=== PATIENT | male | born 1955 ===

== ENCOUNTER → 2017-10-30 | Outpatient (CLI) | payer BC ==
--- NOTE | 2017-10-30 17:40 | CONS ---
CONSULTATION DATE OF SERVICE: 10/30/2017 62-year-old gentleman who has been evaluated in [facility] for obstructive sleep apnea-hypopnea syndrome. HISTORY OF ILLNESS OF PRESENT ILLNESS SLEEP WAKE EVALUATION: Patient had been diagnosed with obstructive sleep apnea about 10 years ago. Since that time, he is on treatment with CPAP and he is using CPAP equipment every night for the whole night, but still even on CPAP he wakes up from sleep during the night. SLEEP SCHEDULE: His sleep schedule on the weekdays from 2:00 am until 9:00 to 10:00 a.m. and on weekends from around 1 to 2 am until 8 to 9:00 am: FALLING ASLEEP: No problems with falling asleep. No TV in bedroom. DURING SLEEP: He sleeps in different position and sometimes his mask is out and he may snore during the sleep. Also according to his , he may have some kind of babbling sounds during the sleep. His weight fluctuating in the range between 235-255 for the last several years after he had a previous sleep study. [place] Sleepiness Scale today is 5. PAST MEDICAL HISTORY: Positive for coronary artery disease, status post stent insertions several times, hypertension, hyperlipidemia, diabetes mellitus. PAST SURGICAL HISTORY: Stent insertions to coronary arteries and left knee replacement. MEDICATIONS: Fenofibrate, lisinopril, carvedilol, atorvastatin, metformin, aspirin, Levemir. SOCIAL HISTORY: Negative for smoking. Alcohol consumption occasional. FAMILY HISTORY: Hypertension, heart problems, bronchitis, sleep apnea, snoring, diabetes. REVIEW OF SYMPTOMS: Awakenings from sleep while on treatment with CPAP. Sometimes swelling of the legs. PHYSICAL EXAM: gentleman without distress, BP 154/84, HR 67, R 16, height 5 feet 10 inches, weight 245, BMI 34.1. Temperature 98.2, oxygen saturation on room air 97%. Oropharynx extremely low position of soft palate, slight restriction of nasal breathing. Abdomen slightly obese. Extremities 1+ ankle edema. Neck 16.5 inches in circumference. Neck Supple, no JVD. Thyroid is not palpable. LUNGS Clear to percussion and to auscultation. Good air exchange. No wheezing or rhonchi. HEART S1, S2 regular. No murmurs, gallops, or rubs. ABDOMEN Soft and nontender. Bowel sounds are present. No organomegaly appreciated. EXTREMITIES No clubbing or cyanosis. 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 Cranial nerves 2 to 7 intact. There is no fasciculation or atrophy. noted. No focal deficits observed. IMPRESSION: 1. Obstructive sleep apnea-hypopnea syndrome for 10 years extremely low position of soft palate, wide neck. The patient is on treatment with CPAP every night, but wakes up from sleep. 2. Obesity BMI 34.1. 3. Coronary artery disease, status post several stent insertions. 4. Hypertension. 5. Hyperlipidemia. 6. Diabetes mellitus. 7. Status post left knee replacement. 8. 1+ ankle swelling. PLAN: 1. We will repeat CPAP titration for evaluation of effective CPAP pressure at the present time. Patient also will need to get new CPAP unit. 2. Prescription for all necessary CPAP supplies. 3. Losing weight. 4. Sleep hygiene with regular time in bed for at least 8 hours. 5. No driving if feeling sleepiness. Thank you very much for allowing me to participate in management of your patient. Sincerely, MMGATITOL / IJN: [id number] /
== END | disposition home or self-care (01) ==
LOC: SLEEP 15:58
PROVIDERS: ATTEND Internal Medicine
DX: G47.33 Obstructive sleep apnea (adult) (pediatric) (principal); I25.10 Atherosclerotic heart disease of native coronary artery without angina pectoris; I10 Essential (primary) hypertension; E78.5 Hyperlipidemia, unspecified; E66.9 Obesity, unspecified; E11.9 Type 2 diabetes mellitus without complications; M25.473 Effusion, unspecified ankle; Z95.5 Presence of coronary angioplasty implant and graft; Z96.651 Presence of right artificial knee joint; Z79.82 Long term (current) use of aspirin; Z79.84 Long term (current) use of oral hypoglycemic drugs; Z79.899 Other long term (current) drug therapy; Z68.34 Body mass index [BMI] 34.0-34.9, adult; Z99.89 Dependence on other enabling machines and devices
CPT/HCPCS: 99211

== ENCOUNTER → 2018-02-19 | Outpatient (CLI) | payer BC ==
--- NOTE | 2018-02-19 13:53 | SFUN ---
SLEEP CENTER FOLLOW UP NOTE DATE OF SERVICE: 02/19/2018 62-year-old gentleman has been followed in the Sleep Center for treatment of obstructive sleep apnea-hypopnea syndrome. Recently we repeated CPAP titration, which showed full normalization of patient breathing on CPAP. He received new CPAP unit. Today is his first visit with a new unit. He is able to use equipment every night for the whole night without any significant problems. I checked CPAP machine. CPAP pressure is 12 cm of water. Usage is 29/30 nights and 25/30 nights for more than 4 hours, average 5.9 hours. Leak is 70 L/minute which is acceptable. Apnea-hypopnea index only to 2.2, which is absolutely normal. [place] Sleepiness Scale today is 4, which is normal. MEDICATIONS: Fenofibrate, lisinopril, carvedilol, atorvastatin, metformin, aspirin, Levemir. PHYSICAL EXAM: GENERAL Patient in no distress. VITAL SIGNS BP 148/66, HR 69, RR 16, weight 250.6, temperature 98.3. Oxygen saturation at room air 96%. HEENT PERRLA, EOMI, evaluation of oropharynx showed extremely low position of soft palate. NECK Supple, no JVD. Thyroid is not palpable. LUNGS Clear to percussion and to auscultation. Good air exchange. No wheezing or rhonchi. HEART S1, S2 regular. No murmurs, gallops, or rubs. ABDOMEN Slightly obese. Soft and nontender. Bowel sounds are present. No organomegaly appreciated. EXTREMITIES No clubbing or cyanosis. 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 Cranial nerves 2 to 7 intact. There is no fasciculation or atrophy. noted. No focal deficits observed. IMPRESSION: 1. Obstructive sleep apnea-hypopnea syndrome, on full control with CPAP at the pressure of 12 cm of water. The patient demonstrated great compliance with treatment benefitting from treatment. 2. Significant periodic limb movements during titration, but patient does not have any symptoms of periodic limb movements clinically. 3. Diabetes mellitus. 4. Coronary artery disease, status post several stent insertions. 5. Hypertension. 6. Hyperlipidemia. 7. Status post left knee replacement. PLAN: 1. Patient will continue to use his CPAP equipment every night for the whole night. 2. Losing weight. 3. Sleep hygiene with regular time in bed for at least 8 hours. 4. No driving if feeling sleepiness. 5. Prescription for all necessary CPAP supplies including mask, tube, filters. Thank you very much for allowing me to participate in management of your patient. Sincerely, Mal Lemon MD, PhD, FAASM Diplomat of [employer] [facility] [place] MMODL / ADELEN: [id number] /
== END | disposition home or self-care (01) ==
LOC: SLEEP 11:28
PROVIDERS: ATTEND Internal Medicine
DX: G47.33 Obstructive sleep apnea (adult) (pediatric) (principal); E11.9 Type 2 diabetes mellitus without complications; I25.10 Atherosclerotic heart disease of native coronary artery without angina pectoris; I10 Essential (primary) hypertension; E78.5 Hyperlipidemia, unspecified; Z96.652 Presence of left artificial knee joint; Z95.1 Presence of aortocoronary bypass graft; Z79.899 Other long term (current) drug therapy; Z79.82 Long term (current) use of aspirin; Z79.84 Long term (current) use of oral hypoglycemic drugs